=== PATIENT | female | born 1940 | race Caucasian/White ===

== ENCOUNTER 2018-12-15 21:08 | Emergency (ER) | payer MEDICARE, OTHER ==
[2018-12-15] MEDS ORDERED: Aspirin 81 MG Tab.Chew PO ONE (21:11)
[2018-12-15] MEDS: Nitroglycerin 0.4 MG Tab.SL SL PRN ×3 (21:21→21:38)
[2018-12-15] MEDS ORDERED: Ondansetron 4 MG/2 ML SDV ONE (21:22)
[2018-12-15] MEDS ORDERED: Heparin Sodium/0.45% NaCl 500 ML ONE (21:30)
[2018-12-15] MEDS ORDERED: Heparin Sodium 5,000 Units/ML Vial ONE (21:31)
[2018-12-15 21:42] LABS: ANION GAP 17.6; CHLORIDE,CL 97 mmol/L (101-111); SODIUM,NA 139 mmol/L (135-145)
[2018-12-15] MEDS ORDERED: atorvaSTATin 20 MG Tab PO ONE (21:43)
[2018-12-15] MEDS ORDERED: Clopidogrel 75 MG Tab PO ONE (21:43)
[2018-12-15] MEDS ORDERED: Tenecteplase 50 MG Kit IV ONE (21:53)
[2018-12-15] MEDS ORDERED: Heparin Sodium/0.45% NaCl 25,000 UNITS/500 ML BAG IV SCH (22:00)
[2018-12-15] MEDS ORDERED: Nitroglycerin/D5W 25 MG/250 ML BOTTLE IV SCH (22:00)
[2018-12-15] MEDS ORDERED: LORazepam 2 MG/ML Syringe IVPUSH ONE (22:04)
[2018-12-15 22:07] VITALS: BP 169/70
--- NOTE | 2018-12-15 22:26 | EDM.PDOC ---
ED HPI GENERAL MEDICAL PROBLEM - General Chief Complaint: Chest Pain Stated Complaint: CHEST PAIN Time Seen by Provider: 12/15/18 21:10 Source of Information: Reports: Patient History Limitations: Reports: No Limitations - History of Present Illness INITIAL COMMENTS - FREE TEXT/NARRATIVE: C/o anterior chest pain. Admits pain intermittent over past month, noted worse today and more constant this evening No SOB, mild nasea no vomiting, states has been drinking soda water tonight so she could burp. Pain radiating to back. Pain 9/10. No prior cardiac hx recent travel from [place] one week ago. States other lindo in good health. Non smoker. Took 2 baby aspirin prior to coming to ED. Treatments RN MANAGED CARE: Reports: NSAIDS Anterior Chest Pain Score (Numeric/FACES): 4 - Related Data Allergies Allergy/AdvReac Type Severity Reaction Status Date / Time tomato Allergy Itching Verified 12/15/18 21:47 seafood Allergy Hives Uncoded 12/15/18 21:47 shrimp Allergy Hives Uncoded 12/15/18 21:47 Home Meds: Home Meds amLODIPine Besylate [Amlodipine Besylate] 10 mg PO DAILY 03/06/14 [History] Aspirin [Halfprin] 81 mg PO DAILY 05/08/15 [History] Losartan [Cozaar] 100 mg PO DAILY 02/09/18 [History] Past Medical History - Past Health History Medical/Surgical History: Denies Medical/Surgical History HEENT History: Reports: Impaired Vision Other HEENT History: WEARS CORRECTIVE LENSES Cardiovascular History: Reports: Hypertension Other Genitourinary History: STRESS [employer]CONTI[employer]OD[employer]ER History: Reports: Other Musculoskeletal History: HX OF LEFT FEMUR FRACTURE Neurological History: Reports: Concussion Psychiatric History: Reports: Anxiety - Past Surgical History HEENT Surgical History: Reports: Cataract Surgery Other HEENT Surgeries/Procedures: CROWNS APPLIED X5; CATARACT EXTRACTION LEFT EYE Other Musculoskeletal Surgeries/Procedures:: LEFT FEMUR FRACTURE SET Social & Family History - Family History Family Medical History: Noncontributory - Tobacco Use Smoking Status *Q: Never Smoker Second Hand Smoke Exposure: No - Caffeine Use Caffeine Use: Reports: Coffee - Recreational Drug Use Recreational Drug Use: No ED ROS GENERAL - Review of Systems Review Of Systems: ROS reveals no pertinent complaints other than HPI. ED EXAM, GENERAL - Physical Exam Exam: See Below Exam Limited By: No Limitations General Appearance: Alert, Anxious, Moderate Distress Eye Exam: Bilateral Eye: EOMI, Vision Changes (wearing glasses) Ears: Normal External Exam, Hearing Grossly Normal Nose: Normal Inspection Throat/Mouth: Normal Inspection Head: Atraumatic Neck: Normal Inspection Respiratory/Chest: No Respiratory Distress, Lungs Clear, Normal Breath Sounds Cardiovascular: Normal Peripheral Pulses, Regular Rate, Rhythm, No Edema GI/Abdominal: Normal Bowel Sounds, Soft, Non-Tender, No Distention Back Exam: Normal Inspection Neurological: Alert, Oriented, Normal Cognition, Normal Gait Psychiatric: Normal Affect, Anxious Skin Exam: Warm, Dry, Intact, Normal Color EKG INTERPRETATION Comparison: NA - No Prior EKG Course - Vital Signs Last Recorded V/S: Last Vital Signs Temp 98.4 F 12/15/18 22:06 Pulse 74 12/15/18 22:06 Resp 16 12/15/18 22:06 BP 169/70 H 12/15/18 22:06 Pulse Ox 99 12/15/18 22:06 - Orders/Labs/Meds Orders: Active Orders 24 hr Category Date Time Status EKG 12 Lead [EKG Documentation Completion] [RC] STAT Care 12/15/18 21:29 Active Labs: Laboratory Tests 12/15/18 12/15/18 12/15/18 Range/Units 21:16 21:16 21:16 WBC 8.3 (5.0-10.0) 10^3/uL RBC 5.10 (4.2-5.4) 10^6/uL Hgb 14.5 (12.0-16.0) g/dL Hct 44.7 (37.0-47.0) % MCV 87.6 (80-100) fL MCH 28.4 (27.0-34.0) pg MCHC 32.4 L (33.0-35.0) g/dL Plt Count 271 (150-450) 10^3/uL Neut % (Auto) 47.9 (42.2-75.2) % Lymph % (Auto) 39.7 (20.5-50.1) % Hidalgo % (Auto) 9.8 H (2-8) % Eos % (Auto) 2.2 (1.0-3.0) % Baso % (Auto) 0.4 (0.0-1.0) % PT 9.4 (9.0-12.0) SEC INR 0.9 (0.9-1.2) APTT (22.0-34.0) SEC D-Dimer, Quantitative 334 (0-400) ng/mL Sodium 139 (135-145) mmol/L Potassium 3.6 (3.6-5.0) mmol/L Chloride 97 L (101-111) mmol/L Carbon Dioxide 28.0 (21.0-31.0) mmol/L Anion Gap 17.6 BUN 19 H (7-18) mg/dL Creatinine 0.7 (0.6-1.3) mg/dL Est Cr Clr Drug Dosing 55.68 mL/min Estimated GFR (MDRD) > 60 BUN/Creatinine Ratio 27.14 Glucose 117 H (74-105) mg/dL Calcium 9.7 (8.4-10.2) mg/dl Total Bilirubin 0.6 (0.2-1.0) mg/dL AST 27 (10-42) IU/L ALT 20 (10-60) IU/L Alkaline Phosphatase 56 (42-121) IU/L CK-MB (CK-2) (0.4-4.7) ng/mL Troponin I 0.11 H* (0.00-0.02) ng/ml B-Natriuretic Peptide 23 (0-100) pg/ml Total Protein 8.1 (6.7-8.2) g/dl Albumin 4.4 (3.2-5.5) g/dl Globulin 3.7 Albumin/Globulin Ratio 1.19 Amylase 80 (28-100) U/L Lipase 28 (22-51) U/L 12/15/18 12/15/18 Range/Units 21:16 21:16 WBC (5.0-10.0) 10^3/uL RBC (4.2-5.4) 10^6/uL Hgb (12.0-16.0) g/dL Hct (37.0-47.0) % MCV (80-100) fL MCH (27.0-34.0) pg MCHC (33.0-35.0) g/dL Plt Count (150-450) 10^3/uL Neut % (Auto) (42.2-75.2) % Lymph % (Auto) (20.5-50.1) % [place]go % (Auto) (2-8) % Eos % (Auto) (1.0-3.0) % Baso % (Auto) (0.0-1.0) % PT (9.0-12.0) SEC INR (0.9-1.2) APTT 24.5 (22.0-34.0) SEC D-Dimer, Quantitative (0-400) ng/mL Sodium (135-145) mmol/L Potassium (3.6-5.0) mmol/L Chloride (101-111) mmol/L Carbon Dioxide (21.0-31.0) mmol/L Anion Gap BUN (7-18) mg/dL Creatinine (0.6-1.3) mg/dL Est Cr Clr Drug Dosing mL/min Estimated GFR (MDRD) BUN/Creatinine Ratio Glucose (74-105) mg/dL Calcium (8.4-10.2) mg/dl Total Bilirubin (0.2-1.0) mg/dL AST (10-42) IU/L ALT (10-60) IU/L Alkaline Phosphatase (42-121) IU/L CK-MB (CK-2) 4.30 (0.4-4.7) ng/mL Troponin I (0.00-0.02) ng/ml B-Natriuretic Peptide (0-100) pg/ml Total Protein (6.7-8.2) g/dl Albumin (3.2-5.5) g/dl Globulin Albumin/Globulin Ratio Amylase (28-100) U/L Lipase (22-51) U/L Meds: Medications Discontinued Medications Generic Name Dose Route Start Last Admin Trade Name Cielo PRN Reason Stop Dose Admin Aspirin 324 mg 12/15/18 21:11 12/15/18 21:22 Aspirin PO 12/15/18 21:12 162 mg ONETIME ONE Administration Atorvastatin Calcium 80 mg 12/15/18 21:43 12/15/18 21:53 Lipitor PO 12/15/18 21:44 80 mg ONETIME ONE Administration Clopidogrel Bisulfate 300 mg 12/15/18 21:43 12/15/18 21:55 Plavix PO 12/15/18 21:44 300 mg ONETIME ONE Administration Heparin Sodium (Porcine) Confirm 12/15/18 21:31 12/15/18 21:42 Heparin Sodium Administered 12/15/18 21:32 5,000 units Dose Administration 5,000 units .ROUTE .STK-MED ONE Heparin Sodium/Sodium Chloride Confirm 12/15/18 21:30 12/15/18 22:13 Heparin 25,000 Units In 1/2 Ns 500 Ml Administered 12/15/18 21:31 Not Given Dose 500 mls @ as directed .ROUTE .STK-MED ONE Heparin Sodium/Sodium Chloride 25,000 units in 500 mls @ 21.228 mls/hr 22:00 12/15/18 21:50 Heparin 25,000 Units In 1/2 Ns 500 Ml IV 12 units/kg/hr TITRATE MIRTA 21.228 mls/hr Administration Protocol 12 UNITS/KG/HR Nitroglycerin/Dextrose 25 mg in 250 mls @ 6 mls/hr 12/15/18 22:00 12/15/18 22 :02 Nitroglycerin 25 Mg/D5w 250 Ml IV 10 mcg/min TITRATE MIRTA 6 mls/hr Administration Protocol 10 MCG/MIN Lorazepam 1 mg 12/15/18 22:04 12/15/18 22:10 Ativan IVPUSH 12/15/18 22:05 0.5 mg ONETIME ONE Administration Nitroglycerin 0.4 mg 12/15/18 21:11 12/15/18 21:38 Nitrostat SL 0.4 mg ONETIME PRN Administration Chest Pain Ondansetron HCl Confirm 12/15/18 21:22 12/15/18 21:24 Zofran Administered 12/15/18 21:23 4 mg Dose Administration 4 mg .ROUTE .STK-MED ONE Tenecteplase 45 mg 12/15/18 21:53 12/15/18 21:59 Tnkase IV 12/15/18 21:54 45 mg ONETIME ONE Administration Protocol - Radiology Interpretation Free Text/Narrative:: Name: JOSÉ LLAMAS Age: 78Years F Date: 12/15/2018 SSN: -- : [id number] Study: XR CHEST 1 VIEW FRONTAL Requesting Physician: BRAYDON GUERRERO Images: 1 Addl Studies: Provided Clinical History: Contrast: Contrast Medium: Contrast Amount: Contrast Method: CONFIDENTIALITY STATEMENT This report is intended only for use by the referring physician, and only in accordance with law. If you received this in error, call [phone]. Page 1 of 1 EXAM: XR Chest, 1 View EXAM DATE/TIME: 12/15/2018 9:18 PM CLINICAL HISTORY: 78 years old, female; Chest pain; Type not specified TECHNIQUE: Imaging protocol: XR of the chest, 1 view. COMPARISON: No relevant prior studies available. FINDINGS: Lungs: Mild atelectatic changes are within the lung bases and right hilar region without focal pneumonia. Pleural space: Unremarkable. No pleural effusion. No pneumothorax. Heart/Mediastinum: Unremarkable. No cardiomegaly. Bones/joints: Unremarkable. IMPRESSION: Mild atelectatic changes are within the lung bases and right hilar region without focal pneumonia. Thank you for allowing us to participate in the care of your patient. Dictated and Authenticated by: Sebastian Roberts DO 12/15/2018 9:53 PM Central Time ([place] & [place]) - Re-Assessments/Exams Free Text/Narrative Re-Assessment/Exam: 12/16/18 01:51 initial EKG with elevation Leads 1 V2 V3. AVL Reciprocal AVF and III. Initial Nitro decrease pain from 9-4, 2nd decrease to 3, to resolved anteriorly bu continued mild in back but improved. TC consult [facility], Accepting of patient in transfer. Family here. Discussed with patient and family risks and benefits with TNK. Both agreeable to preceding with [facility]NK as no contraindications. Tx via [facility]. Vitals stable, repeat EKG via [facility] , mild improvement in ST elevation. Anterior chest pain resolved at transport, intermittent mild posterio mid thoracic sharp pain . Departure - Departure Time of Disposition: 22:20 Disposition: DC/Tfer to Acute Hospital 02 Reason for Transfer *Q: Primary PCI Indicated Condition: Undetermined Clinical Impression: Acute coronary syndrome STEMI (ST elevation myocardial infarction) Qualifiers: Involved coronary artery: unspecified coronary artery Qualified Code(s): I21.3 - ST elevation (STEMI) myocardial infarction of unspecified site Referrals: PCP,None [Primary Care Provider] - Forms: ED Department Discharge - My Orders Last 24 Hours: My Active Orders 12/15/18 21:29 EKG 12 Lead [EKG Documentation Completion] [RC] STAT - Assessment/Plan Last 24 Hours: My Active Orders 12/15/18 21:29 EKG 12 Lead [EKG Documentation Completion] [RC] STAT
== END 2018-12-15 22:26 ==
LOC: DL.ED 21:08
DX: I21.3 ST elevation (STEMI) myocardial infarction of unspecified site (principal); I24.9 Acute ischemic heart disease, unspecified; Z91.018 Allergy to other foods; Z91.09 Other allergy status, other than to drugs and biological substances; Z79.899 Other long term (current) drug therapy; Z79.82 Long term (current) use of aspirin
CPT/HCPCS: 36415; 71045; 80053; 82150; 82553; 83690; 83880; 84484; 85025; 85379; 85610; 85730; 93005; 96365; 96368; 96375; 99285; A9270; J1644; J2060; J2405; J3101; J3490

== ENCOUNTER 2024-04-24 10:42 | Emergency (ER) | payer MEDICARE, OTHER ==
[2024-04-24 12:09] VITALS: BP 153/83; PULSE 63
[2024-04-24] MEDS: Diphtheria,Pertussis(Acell),Tetanus Vaccine 0.5 ML Syringe IM ONE (12:15)
== END 2024-04-24 12:18 | disposition home or self-care (01) ==
LOC: DL.ED 10:42
DX: S91.051A Open bite, right ankle, initial encounter (principal); I10 Essential (primary) hypertension; I25.2 Old myocardial infarction; Z23 Encounter for immunization; Z95.5 Presence of coronary angioplasty implant and graft; Z79.82 Long term (current) use of aspirin; Z79.899 Other long term (current) drug therapy; Z91.018 Allergy to other foods; Z91.013 Allergy to seafood; W54.0XXA Bitten by dog, initial encounter
CPT/HCPCS: 90471; 90715; 99282; 99283-25